=== PATIENT | female | born 1945 | race Caucasian/White ===

== ENCOUNTER → 2022-06-03 14:44 | Outpatient (BNVA) | payer MEDICARE, SELFPAY | PROVIDERS: PCP Family Medicine; Visit Provider Internal Medicine | DX: E16.2 Hypoglycemia, unspecified (principal); R63.5 Abnormal weight gain; Z68.32 Body mass index [BMI] 32.0-32.9, adult | CPT/HCPCS: 99203; 99204 ==

== ENCOUNTER 2023-08-22 11:44 | Inpatient (IN) | payer MEDICARE, SELFPAY ==
[2023-08-22] VITALS (24 sets, daily range): BP systolic 103–197; BP diastolic 49–98; PULSE 55–75; RESP 15–21; TEMP 36.7–36.8; O2SAT 94–99
--- NOTE | 2023-08-22 11:49 | ECG_ITS ---
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 Measurements Intervals [place] Rate: 60 P: 53 OK: 168 QRS: -44 QRSD: 111 T: 47 QT: 419 QTc: 420 Interpretive Statements SINUS RHYTHM LEFT AXIS DEVIATION [QRS AXIS < -30] MODERATE INTRAVENTRICULAR CONDUCTION DELAY [110+ ms QRS DURATION] VOLTAGE CRITERIA FOR LVH [MEETS CRITERIA IN ONE OF: R(aVL), S(V1), R(V5), R(V5/V6)+S(V1)] No previous ECG available for comparison Electronically Signed On 08-22-2023 14:24:41 CDT by Rajesh Pizarro M.D. [id number] f
--- NOTE | 2023-08-22 12:10 | XR_ITS ---
WS: [id number] XR chest 1V portable [id number] REASON FOR EXAM: Chest pain FINDINGS: Mild tortuosity of the thoracic aorta. Mild cardiomegaly. Prominence of the central pulmonary veins. Calcified granulomatous disease in both hemithoraces. No acute pulmonary parenchymal or pleural abnormality is identified. Moderate degenerative spondylosis in the mid and lower thoracic spine. XR/XR chest 1V portable [id number] IMPRESSION: Myocardial megaly and central pulmonary venous hypertension. No acute abnormali ty.
--- NOTE | 2023-08-22 12:11 | ED_ITS ---
HPI - Chest Pain 2 General: Chief Complaint: Chest Pain Stated Complaint: CP Time Seen by Provider: 08/22/23 12:05 History of Present Illness: 78-year-old female with a history of hyp ertension and congestive heart failure (nonischemic) who presents to the emergency room with chest pain. He says yesterday she was doing some things and had a chest tightness that was so bad it made her have to sit down. She has had some increased leg swelling. She is felt more short of breath. The chest tightness has improved today but she still has shortness of breath. She has had a cough for some time now. No fevers. No nausea or vomiting. No abdominal pain. No altered mental status. No focal motor deficits. Review of Systems 2 Narrative: Constitutional symptoms: Negative except as documented in HPI. Skin symptoms: Negative except as documented in HPI. Eye symptoms: Negative except as documented in HPI. ENMT symptoms: Negative except as documented in HPI. Respiratory symptoms: Negative except as documented in HPI. Cardiovascular symptoms: Negative except as documented in HPI. Gastrointestinal symptoms: Negative except as documented in HPI. Genitourinary symptoms: Negative except as documented in HPI. Musculoskeletal symptoms: Negative except as documented in HPI. Neurologic symptoms: Negative except as documented in HPI. Psychiatric symptoms: Negative except as documented in HPI. Endocrine symptoms: Negative except as documented in HPI. PFSH ED 2 PFSH: Medical History Acute hemorrhoid Arthritis Surgical History History of laparoscopic cholecystectomy Physical Exam 2 Narrative: EXAM NARRATIVE: General: Alert, no acute distress. Skin: Warm, dry. Head: Normocephalic, atraumatic. Neck: Supple, trachea midline. Eye: Extraocular movements are intact. Ears, nose, mouth and throat: mucosa moist. Cardiovascular: Regular, Normal peripheral perfusion. Trace tibial edema Respiratory: Lungs are clear to auscultation, respirations are non-labored, breath sounds are equal, Symmetrical chest wall expansion. Gastrointestinal: Soft, Nontender, Non distended, Normal bowel sounds. Musculoskeletal: Normal ROM, no deformity. Neurological: Alert and oriented, No focal neurological deficit observed. Psychiatric: Cooperative, appropriate mood & affect. Course 2 Vital Signs: Vital signs: Vital Signs Temperature 98.1 F 08/22/23 11:45 Pulse Rate 65 08/22/23 15:30 Respiratory Rate 17 08/22/23 15:30 Blood Pressure 180/98 08/22/23 15:30 Pulse Oximetry 97 08/22/23 15:30 Oxygen Delivery Me thod Room Air 08/22/23 11:45 MDM - Chest Pain Medical Decision Making Differential diagnosis for patient with chest pain includes but is not limited to and based on the above HPI, review of systems and physical exam: Pneumonia. unstable angina. angina. Acute coronary syndrome / [place]. Pulmonary embolism. Costochondritis / musculoskeletal. Pleurisy. Pericarditis. Esophageal spasm. Pancreatis. Cholecystitis. Workup: Lab work, chest X-ray and EKG ordered to evaluate, rule in and rule out above pathologies. Chest x-ray: No acute process. No infiltrate. No pneumothorax. Stable cardiomegaly. This was reviewed and interpreted by myself the ER physician. EKG: Time 1149 rate 60 normal sinus rhythm, No ST-T changes, no ectopy, normal MD & QRS intervals, This was reviewed and interpreted by myself the ER physician at 1132. Lab Review: Laboratory results were reviewed and interpreted by myself the emergency room physician. White count is 4.9. Hemoglobin is 13. Platelets are low at 141. BUN and creatinine are 14 and 0.5. First troponin is 40. Repeat troponin is 15 with a delta Trope of 25. I believe she likely had some sort of cardiac event yesterday and her troponin is coming down. I reviewed the patient's medical record. Reexamination: Patient is stable. She is not having any recurrent chest pain. No altered mental status. No increased work of breathing. Consultation: Cardiology consulted at the request of the hospitalist. Dr. Clinton. He will see the patient. Recommends Lovenox, aspirin and metoprolol. Patient has had no further chest pain. Assessment and plan: Non-ST elevation myocardial infarction Unstable angina Hypertension -Therapeutic lovenox and aspirin. P.o. metoprolol -I discussed the patient with the hospitalist on-call who is admitting the patient. - Discussed findings and plan with patient. Answered any questions. - All laboratory values were reviewed and interpreted personally by myself, the ER physician - All imaging was reviewed and interpreted personally by myself, the ER physician. - Evaluation and treatment of this problem were appropriate in the emergency setting -I spent a total of >35 minutes of critical care time managing the patient, independent of any other practitioner. -The time involved in the performance of separately reportable procedures was not counted towards critical care time. Lab Data 08/22/23 12:45 08/22/23 12:45 Radiology Impressions Chest X-Ray 08/22/23 12:10 IMPRESSION: Myocardial megaly and central pulmonary venous hypertension. No acute abnormality. Laboratory Results WBC 4.90 10^3/uL (3.29-11.43) 08/22/23 12:45 RBC 4.17 10^6/uL (3.85-5.65) 08/22/23 12:45 Hgb 13.10 g/dL (11.27-16.99) 08/22/23 12:45 Hct 40.3 % (36-47) 08/22/23 12:45 MCV 96.6 fl (85-98) 08/22/23 12:45 MCH 31.4 pg (27-33) 08/22/23 12:45 MCHC 32.5 g/dL (30-55) 08/22/23 12:45 RDW 13.8 % (12.1-15.1) 08/22/23 12:45 Plt Count 141 10^3/cmm (157-399) L 08/22/23 12:45 MPV 12.6 fL (7.4-10.4) H 08/22/23 12:45 Neut % (Auto) 56.4 % 08/22/23 12:45 Lymph % (Auto) 28.8 % 08/22/23 12:45 [place] % (Auto) 12.2 % 08/22/23 12:45 Eos % (Auto) 1.8 % 08/22/23 12:45 Baso % (Auto) 0.6 % 08/22/23 12:45 Neut # (Auto) 2.76 10^3/uL (1.8-7.7) 08/22/23 12:45 Lymph # (Auto) 1.4 10^3/uL (0.8-4.8) 08/22/23 12:45 [place] # (Auto) 0.6 10^3/uL (0.2-0.9) 08/22/23 12:45 Eos # (Auto) 0.1 10^3/uL (0.0-0.8) 08/22/23 12:45 Baso # (Auto) 0.0 10^3/uL (0.0-0.1) 08/22/23 12:45 Nucleated RBC % (auto) 0 % 08/22/23 12:45 Nucleated RBCs # 0.0 /100WBC 08/22/23 12:45 Sodium 141 mmol/L (136-145) 08/22/23 12:45 Potassium 4.2 mmol/L (3.5-5.1) 08/22/23 12:45 Chloride 104 mmol/L (98-107) 08/22/23 12:45 Carbon Dioxide 28 mmol/L (22-29) 08/22/23 12:45 Anion Gap 13.2 (5-19) 08/22/23 12:45 BUN 14 mg/dL (8-23) 08/22/23 12:45 Creatinine 0.5 mg/dL (0.5-0.9) 08/22/23 12:45 GFR Calculation Not Reportable 08/22/23 12:45 Glucose 101 mg/dL (65-115) 08/22/23 12:45 Calculated Osmolality 293 mOsm/kg (285-295) 08/22/23 12:45 Lactic Acid 0.6 mmol/L (0.5-2.2) 08/22/23 12:45 Calcium 9.0 mg/dL (8.5-10.5) 08/22/23 12:45 Total Bilirubin 0.4 mg/dL (0.15-1.2) 08/22/23 12:45 AST 16 U/L (0-32) 08/22/23 12:45 ALT 12 U/L (0-33) 08/22/23 12:45 Alkaline Phosphatase 106 U/L (35-105) H 08/22/23 12:45 Troponin T Baseline 40 ng/L (0-10) H 08/22/23 14:13 Troponin T 120 Minute 14.49 ng/L (0-10) H 08/22/23 15:41 Delta Troponin T -25.51 ABS# (0-10) L 08/22/23 15:41 C-Reactive Protein 3.0 mg/L (0.0-4.9) 08/22/23 12:45 NT-Pro-B Natriuret Pep 4542 pg/mL (0-450) H 08/22/23 14:13 Total Protein 6.7 g/dL (6.6-8.7) 08/22/23 12:45 Albumin 3.9 g/dL (3.5-5.2) 08/22/23 12:45 Globulin 2.8 g/dL (1.3-4.6) 08/22/23 12:45 Urine Color Light yellow (Yellow) 08/22/23 14:04 Urine Appearance Clear (CLEAR) 08/22/23 14:04 Urine pH 7 (5-7) 08/22/23 14:04 Ur Specific [place] 1.010 (1.005-1.030) 08/22/23 14:04 Urine Protein Neg (Negative) 08/22/23 14:04 Urine Glucose (UA) Norm (Normal) 08/22/23 14:04 Urine Ketones Negative (Negative) 08/22/23 14:04 Urine Blood Neg (Negative) 08/22/23 14:04 Urine Nitrate Negative (Negative) 08/22/23 14:04 Urine Bilirubin Neg (Negative) 08/22/23 14:04 Urine Urobilinogen Norm mg/dL (Negative) 08/22/23 14:04 Ur Leukocyte Esterase Negative (Negative) 08/22/23 14:04 Urine RBC 0-4 /hpf (0-2) H 08/22/23 14:04 Urine WBC 0-4 /hpf (0-5) H 08/22/23 14:04 Ur Squamous Epith Cells 0-4 /hpf (0-5) H 08/22/23 14:04 Amorphous Sediment Not Reportable 08/22/23 14:04 Urine Bacteria Trace /hpf (NONE) 08/22/23 14:04 Adenovirus (PCR) Not detected (NOT DETECT) 08/22/23 12:46 C. pneumoniae DNA (PCR) Not detected (NOT DETECT) 08/22/23 12:46 Coronavirus 229E (PCR) Not detected (NOT DETECT) 08/22/23 12:46 Human Metapneumovir PCR Not detected (NOT DETECT) 08/22/23 12:46 Influenza A (H1) PCR Not detected (NOT DETECT) 08/22/23 12:46 Influ A (H1/09) PCR Not detected (NOT DETECT) 08/22/23 12:46 Influenza A (H3) PCR Not detected (NOT DETECT) 08/22/23 12:46 Influenza Type A (PCR) Not detected (NOT DETECT) 08/22/23 12:46 Influenza Type B (PCR) Not detected (NOT DETECT) 08/22/23 12:46 M. pneumoniae (PCR) Not detected (NOT DETECT) 08/22/23 12:46 Parainfluenza 1 (PCR) Not detected (NOT DETECT) 08/22/23 12:46 Parainfluenza 2 (PCR) Not detected (NOT DETECT) 08/22/23 12:46 Parainfluenza 3 (PCR) Not detected (NOT DETECT) 08/22/23 12:46 Parainfluenza 4 (PCR) Not detected (NOT DETECT) 08/22/23 12:46 RSV Type A (PCR) Not detected (NOT DETECT) 08/22/23 12:46 RSV Type B (PCR) Not detected (NOT DETECT) 08/22/23 12:46 Entero/Rhino (PCR) Not detected (NOT DETECT) 08/22/23 12:46 SARS-CoV-2 (PCR) Not detected (NOT DETECT) 08/22/23 12:46 All radiology interpretation(s) finalized by discharge Discharge Plan Discharge Patient Disposition: Admitted As Inpatient Clinical Impression: Non-ST elevated myocardial infarction, Unstable angina, Hypertension Condition: Stable Coding Level of Care Code ED Medical Affairs Manager for Alexey Yeung
[2023-08-22 13:08] LABS: Basophils % 0.6 %; Eosinophils # 0.1 10^3/uL (0.0-0.8); Eosinophils % 1.8 %; Hematocrit 40.3 % (36-47); Lymphocytes # 1.4 10^3/uL (0.8-4.8); Lymphocytes % 28.8 %; Mean Corpuscular HGB Conc 32.5 g/dL (30-55); Mean Corpuscular Hemoglobin 31.4 pg (27-33); Mean Corpuscular Volume 96.6 fl (85-98); Mean Platelet Volume 12.6 fL (7.4-10.4); Monocytes # 0.6 10^3/uL (0.2-0.9); Monocytes % 12.2 %; Neutrophils # 2.76 10^3/uL (1.8-7.7); Neutrophils % 56.4 %; Nucleated Red Blood Cells % 0 %; Platelet Count 141 10^3/cmm (157-399); Red Blood Count 4.17 10^6/uL (3.85-5.65); Red Cell Distribution Width 13.8 % (12.1-15.1)
[2023-08-22 13:33] LABS: Alanine Aminotransferase 12 U/L (0-33); Albumin Level 3.9 g/dL (3.5-5.2); Alkaline Phosphatase 106 U/L (35-105); Anion Gap 13.2 (5-19); Aspartate Amino Transferase 16 U/L (0-32); Blood Urea Nitrogen 14 mg/dL (8-23); Carbon Dioxide 28 mmol/L (22-29); Chloride 104 mmol/L (98-107); Globulin 2.8 g/dL (1.3-4.6); Glucose 101 mg/dL (65-115); Osmolality Calculated 293 mOsm/kg (285-295); Potassium 4.2 mmol/L (3.5-5.1); Sodium 141 mmol/L (136-145); Total Bilirubin 0.4 mg/dL (0.15-1.2); Total Protein 6.7 g/dL (6.6-8.7)
[2023-08-22 13:35] LABS: Lactic Sepsis W/Reflex 0.6 mmol/L (0.5-2.2)
[2023-08-22 14:57] LABS: Adenovirus Not Detected (NOT DETECT); Chlamydia Pneumoniae Not Detected (NOT DETECT); Coronavirus 229E,HKU1,NL63,OC4 Not Detected (NOT DETECT); Human Metapneumovirus Not Detected (NOT DETECT); Human Rhinovirus/Enterovirus Not Detected (NOT DETECT); Influenza A Not Detected (NOT DETECT); Influenza A H1 Not Detected (NOT DETECT); Influenza A H1-2009 Not Detected (NOT DETECT); Influenza A H3 Not Detected (NOT DETECT); Influenza B Not Detected (NOT DETECT); Mycoplasma Pneumoniae Not Detected (NOT DETECT); Parainfluenza Virus Type 1 Not Detected (NOT DETECT); Parainfluenza Virus Type 2 Not Detected (NOT DETECT); Parainfluenza Virus Type 3 Not Detected (NOT DETECT); Parainfluenza Virus Type 4 Not Detected (NOT DETECT); Respiratory Syncytial Virus A Not Detected (NOT DETECT); Respiratory Syncytial Virus B Not Detected (NOT DETECT); SARS-COV-2 Not Detected (NOT DETECT)
[2023-08-22 14:59] LABS: Troponin(5th) Baseline 40 ng/L (0-10)
--- NOTE | 2023-08-22 15:02 | ECG_ITS ---
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 Measurements Intervals [place] Rate: 60 P: 59 TX: 173 QRS: -38 QRSD: 118 T: 44 QT: 436 QTc: 437 Interpretive Statements SINUS RHYTHM LEFT AXIS DEVIATION [QRS AXIS < -30] VOLTAGE CRITERIA FOR LVH [MEETS CRITERIA IN ONE OF: R(aVL), S(V1), R(V5), R(V5/V6)+S(V1)] POSSIBLE LATERAL MYOCARDIAL INFARCTION , OF INDETERMINATE AGE [30 ms Q WAVE IN I/aVL/V5/V6] Compared to ECG 08/22/2023 11:49:56 Myocardial infarct finding now present Intraventricular conduction delay no longer present Electronically Signed On 08-24-2023 12:49:46 CDT by Rajesh Pizarro M.D. [id number]
[2023-08-22 15:06] LABS: NT Pro B Type Natriuretic Pept 4542 pg/mL (0-450)
[2023-08-22 16:05] LABS: Urine Color Light yellow (Yellow)
[2023-08-22 16:06] LABS: Add Urine Culture? No; Bacteria Urine TRACE /hpf; Bilirubin Urine Neg (Negative); Blood Urine Neg (Negative); Glucose Urine UA Norm (Normal); Ketones Urine Negative (Negative); Leukocyte Esterase Urine Negative (Negative); Nitrate Urine Negative (Negative); Protein Urine Neg (Negative); RBC Urine 0-4 /hpf (0-2); Squamous Epithelial Cell Urine 0-4 /hpf (0-5); Urine Appearance Clear (CLEAR); Urobilinogen Urine Norm (Negative); WBC Urine 0-4 /hpf (0-5); pH Urine 7 (5-7)
[2023-08-22 16:45] LABS: Troponin 5 2HR 14.49 ng/L (0-10)
[2023-08-22 16:46] LABS: Troponin 5 2HR Delta -25.51 ABS# (0-10)
--- NOTE | 2023-08-22 17:49 | P.HP_ITS ---
Providers/Chief Complaint 2 Admitting Physician: Edson Bridges MD Primary Care Provider: Leonid Pagan Chief Complaint: CP History of Present Illness Valerie Grant is a 78 year old female with history of heart failure, presented today with chief complaint of chest pain. 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 Patient is also endorsing lower extremity swelling which is slightly better after getting Lasix. Patient is stating that she does have history of congestive heart failure never had coronary disease or any stents placed. Never smoked in her life. Review of Systems 2 Const: Denies: fever(s) Eyes: Denies: change in vision ENMT: Denies: throat pain Card: Reports: chest pain and swelling of feet/ankles Resp: Reports: dyspnea Medications/Allergies Home Medications Medication Instructions Recorded Confirmed Last Taken Type famotidine 20 mg tablet (Pepcid) 20 mg PO DAILY 06/03/22 08/22/23 08/22/23 History furosemide 40 mg tablet 40 mg PO DAILY 06/03/22 08/22/23 08/21/23 History losartan 25 mg tablet 25 mg PO DAILY 06/03/22 08/22/23 08/22/23 History magnesium citrate 100 mg capsule 100 mg PO DAILY PRN unknown 06/03/22 08/22/23 Unknown History metoprolol tartrate 25 mg tablet 12.5 mg PO BID 06/03/22 08/22/23 08/22/23 History potassium chloride 20 mEq 20 meq PO DAILY 06/03/22 08/22/23 08/21/23 History tablet,extended release(part/cryst) sertraline 50 mg tablet 25 mg PO DAILY 06/03/22 08/22/23 08/21/23 History Allergies Allergy/AdvReac Type Severity Reaction Status Date / Time sulfamethoxazole Allergy Severe Swelling Verified 08/22/23 12:08 [From Sulfamethoxazole-Trimethoprim] trimethoprim Allergy Severe Swelling Verified 08/22/23 12:08 [From Sulfamethoxazole-Trimethoprim] epinephrine Allergy Intermediate palpations Verified 08/22/23 12:08 lidocaine Allergy Intermediate palpations Verified 08/22/23 12:08 meloxicam Allergy Intermediate palpatation Verified 08/22/23 12:08 s penicillin G Allergy Intermediate itching Verified 08/22/23 12:08 tetracycline Allergy Intermediate itching Verified 08/22/23 12:08 cephalexin Allergy Severe Stomach Uncoded 06/03/22 15:45 pain codine Allergy Intermediate itching Uncoded 06/03/22 15:25 erythromycin Allergy Intermediate itching Uncoded 06/03/22 15:25 pseudoephedrine hcl Allergy Intermediate palpitation Uncoded 06/03/22 15:45 s PFSH Acute 2 PFSH: Medical History (Updated 08/22/23 @ 18:52 by Edson Bridges MD) CHF (congestive heart failure) Stroke Appendicitis Breast cancer Melanoma COPD (chronic obstructive pulmonary disease) Acute hemorrhoid Arthritis Surgical History History of laparoscopic cholecystectomy Vitals/I&O/Wt Last Vital Signs Temp 98.1 F 08/22/23 11:45 Pulse 65 08/22/23 15:30 Resp 17 08/22/23 15:30 BP 180/98 08/22/23 15:30 Pulse Ox 97 08/22/23 15:30 O2 Del Method Room Air 08/22/23 11:45 Physical Exam 2 Narrative: Pleasant cooperative No active chest pain Hypertensive GCS 15 Nonfocal neuroexam lower extremity nonpitting edema Abdomen soft S1, S2 Currently on room air Appears stated age Data 08/22/23 12:45 08/22/23 12:45 Micro: Microbiology 08/22/23 12:58 Blood Culture - Preliminary Blood SPECIMEN COLLECTED 08/22/23 12:45 Blood Culture - Preliminary Blood SPECIMEN COLLECTED A&P Assessment and plan (1) Hypertension: (2) Unstable angina: Plan Unstable angina Typical chest pain Will keep n.p.o. after midnight She will benefit from an angiogram Cardiology consulted I will load her with Plavix She has received aspirin loading dose She has also received therapeutic Lovenox Troponin 29 EKG without infarctive changes however showing multiple PVCs She is chest pain free at the time of my evaluation Hypertensive urgency: Will give her IV hydralazine, I will continue her metoprolol and losartan History of congestive heart failure, EF is unknown She takes Lasix along potassium supplementation on daily basis Will request echo N.p.o. after midnight She can eat before midnight Full code Patient is stating that she is prediabetic Check D-dimer, TSH Attestations 2 Medical Necessity Statement*: More than 2 midnights anticipated Diagnoses Hypertension I10 Unstable angina I20.0
[2023-08-22] MEDS: metoprolol tartrate 25 mg Tablet 12.5 MG PO (17:50)
[2023-08-22] MEDS: enoxaparin 100 mg/mL Syringe 90 MG SUBCUT (17:52)
[2023-08-22] MEDS: aspirin 81 mg Chew Tablet 324 MG PO (17:52)
--- NOTE | 2023-08-22 18:27 | P.CONIM_ITS ---
Providers/Reason For Consult 2 Consulting Physician/Specialty*: Geovanna Pizarro MD/ Cardiology Reason for Consult*: Unstable angina Requesting Physician: Dr Bridges Attending Physician: Edson Bridges MD Primary Care Provider: Leonid Pagan History of Present Illness History of Present Illness Valerie Grant is a 78 year old female with past medical history of hypertension who presented to hospital with chest pain, fatigue and shortness of breath for the last few weeks. She has been worsening symptoms and today felt significant symptoms that brought her to the hospital. Says that can not do physical activity without getting symptoms. EKG shows sinus rhythm with interventricular conduction delay. Initial troponin was elevated at 40 and has trended down. Blood pressure initially was elevated to over 180 mmHg however has trended down. Review of Systems 2 Const: Denies: fever(s) Eyes: Denies: change in vision ENMT: Denies: throat pain Card: Reports: chest pain and swelling of feet/ankles Resp: Reports: dyspnea Medications/Allergies Home Medications Medication Instructions Recorded Confirmed Last Taken Type famotidine 20 mg tablet (Pepcid) 20 mg PO DAILY 06/03/22 08/22/23 08/22/23 History furosemide 40 mg tablet 40 mg PO DAILY 06/03/22 08/22/23 08/21/23 History magnesium citrate 100 mg capsule 100 mg PO DAILY PRN unknown 06/03/22 08/22/23 Unknown History potassium chloride 20 mEq 20 meq PO DAILY 06/03/22 08/22/23 08/21/23 History tablet,extended release(part/cryst) sertraline 50 mg tablet 25 mg PO DAILY 06/03/22 08/22/23 08/21/23 History amlodipine 10 mg tablet 10 mg PO DAILY #90 tabs 08/23/23 Unknown Rx aspirin 81 mg tablet,delayed 81 mg PO DAILY #90 tabs 08/23/23 Unknown Rx release losartan 25 mg tablet 50 mg (2 x 25 mg) PO DAILY #60 tabs 08/23/23 Unknown Rx Allergies Allergy/AdvReac Type Severity Reaction Status Date / Time sulfamethoxazole Allergy Severe Swelling Verified 08/22/23 12:08 [From Sulfamethoxazole-Trimethoprim] trimethoprim Allergy Severe Swelling Verified 08/22/23 12:08 [From Sulfamethoxazole-Trimethoprim] epinephrine Allergy Intermediate palpations Verified 08/22/23 12:08 lidocaine Allergy Intermediate palpations Verified 08/22/23 12:08 meloxicam Allergy Intermediate palpatation Verified 08/22/23 12:08 s penicillin G Allergy Intermediate itching Verified 08/22/23 12:08 tetracycline Allergy Intermediate itching Verified 08/22/23 12:08 cephalexin Allergy Severe Stomach Uncoded 06/03/22 15:45 pain codine Allergy Intermediate itching Uncoded 06/03/22 15:25 erythromycin Allergy Intermediate itching Uncoded 06/03/22 15:25 pseudoephedrine hcl Allergy Intermediate palpitation Uncoded 06/03/22 15:45 s Current Medications Generic Name Dose Route Start Last Admin Trade Name Freq PRN Reason Stop Dose Admin Metoprolol Tartrate 12.5 mg 08/22/23 18:03 08/22/23 18:23 Metoprolol Tartrate 25 Mg Tablet PO Not Given BID CINTHYA PFSH Acute 2 PFSH: Medical History (Updated 08/30/23 @ 13:03 by Rajesh Pizarro M.D) Hypertension Unstable angina Eliseo-tachy syndrome Bradycardia Non-ST elevated myocardial infarction CHF (congestive heart failure) Stroke Appendicitis Breast cancer Melanoma COPD (chronic obstructive pulmonary disease) Acute hemorrhoid Arthritis Surgical History History of laparoscopic cholecystectomy Vitals/I&O/Wt Last Vital Signs Temp 98.1 F 08/22/23 11:45 Pulse 63 08/22/23 18:08 Resp 16 08/22/23 18:08 BP 180/98 08/22/23 15:30 Pulse Ox 98 08/22/23 18:08 O2 Del Method Room Air 08/22/23 18:08 Physical Exam 2 Narrative: GENERAL: Patient is alert, awake and oriented x3. [] NECK: No jugular vein distension. [] HEENT: No cyanosis. No icterus. No pallor. [] HEART: Regular S1 and S2. No murmur, rub or gallop. [] LUNGS: Clear to auscultate bilaterally. [] CENTRAL NERVOUS SYSTEM: Grossly nonfocal. [] EXTREMITIES: Lower extremities with 1+ edema bilaterally. Data 08/24/23 03:00 08/24/23 03:00 Micro: Microbiology 08/22/23 12:58 Blood Culture - Preliminary Blood SPECIMEN COLLECTED 08/22/23 12:45 Blood Culture - Preliminary Blood SPECIMEN COLLECTED A&P Assessment and plan (1) Unstable angina: (2) Hypertension: (3) CHF (congestive heart failure): Plan Patient has been having symptoms concerning for unstable angina. Initial troponin was elevated however has not trended up. Given her risk factors and typical worsening symptoms, we will proceed with coronary angiogram. N.p.o. past midnight. Blood pressure was elevated at presentation. Uptitrate antihypertensive medications as needed. Nitro gtt as needed Continue aspirin and anticoagulation Order echocardiogram Thank you for involving us with care of this patient. We will continue to follow. Please call with questions. Consult Attestations 2 Medical Necessity Statement: Care expected to cross 2 midnights. Coding Level of Care Code Acute Code for [facility] Diagnoses Unstable angina I20.0 Hypertension I10 CHF (congestive heart failure) I50.9
[2023-08-22] MEDS: FUROsemide 10 mg/mL SDV 4mL 40 MG IVP (18:37)
[2023-08-22] MEDS: clopidogrel 300 mg Tablet PO (19:26)
[2023-08-22] MEDS: hyDRALAzine 20 mg/mL INJ 1 mL 10 MG IVP (19:26)
--- NOTE | 2023-08-22 19:39 | PC.NURSE ---
Patient refusing to wear SCDs presently. Patient is currently on Lovenox. PLan for LHC in am.
[2023-08-22 19:42] LABS: D Dimer 0.68 ug/mLFEU (0-0.59)
[2023-08-22 19:48] LABS: Estmated Average Glucose 111; Hemoglobin A1C 5.5 % (4.0-6.0)
[2023-08-22 20:05] LABS: Thyroid Stimulating Hormone 2.25 uIU/mL (0.27-4.20); Vitamin B12 382 pg/mL (232-1245)
--- NOTE | 2023-08-22 20:15 | ECG_ITS ---
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 Measurements Intervals [place] Rate: 68 P: 62 IN: 155 QRS: -49 QRSD: 119 T: 20 QT: 431 QTc: 461 Interpretive Statements SINUS RHYTHM WITH OCCASIONAL VENTRICULAR PREMATURE COMPLEXES LEFT ANTERIOR FASCICULAR BLOCK [QRS AXIS <= -45, QR IN I, RS IN II] NONSPECIFIC ST & T-WAVE ABNORMALITY Compared to ECG 08/22/2023 15:02:08 Ventricular premature complex(es) now present Left anterior fascicular block now present T-wave abnormality now present Left-axis deviation no longer present Left ventricular hypertrophy no longer present Myocardial infarct finding no longer present Electronically Signed On 08-24-2023 12:48:23 CDT by Rajesh Pizarro M.D. [id number]
[2023-08-23] VITALS (22 sets, daily range): BP systolic 99–147; BP diastolic 47–68; PULSE 51–79; RESP 14–24; TEMP 36.7; O2SAT 92–98
[2023-08-23] MEDS: acetaminophen 500 mg Tablet PO ×2 (02:43→20:42)
[2023-08-23 05:48] LABS: Basophils % 0.7 %; Eosinophils # 0.1 10^3/uL (0.0-0.8); Eosinophils % 2.4 %; Hematocrit 36.4 % (36-47); Lymphocytes # 1.9 10^3/uL (0.8-4.8); Lymphocytes % 36.3 %; Mean Corpuscular HGB Conc 33.2 g/dL (30-55); Mean Corpuscular Volume 96.3 fl (85-98); Mean Platelet Volume 12.9 fL (7.4-10.4); Monocytes # 0.7 10^3/uL (0.2-0.9); Monocytes % 12.5 %; Neutrophils # 2.55 10^3/uL (1.8-7.7); Neutrophils % 47.9 %; Nucleated Red Blood Cells % 0 %; Platelet Count 136 10^3/cmm (157-399); Red Blood Count 3.78 10^6/uL (3.85-5.65); White Blood Count 5.34 10^3/uL (3.29-11.43)
--- NOTE | 2023-08-23 06:00 | USCV_ITS ---
Valerie Grant Age: 78 Gender: F : 1945 Exam Date: 08/23/2023 06:54 Ordering Phys: Edson Bridges MD Technologist: Jl Levi [place]am [place] [facility] [place]: chf BP: 127 / 63 HR: 68 Rhythm: Sinus Technical Quality: Adequate MEASUREMENTS (Male / Female) Normal Values 2D ECHO LV Diastolic Diameter PLAX 5.5 cm 4.2 - 5.9 / 3.9 - 5.3 cm IVS Diastolic Thickness 0.8 cm 0.6 - 1.0 / 0.6 - 0.9 cm IVS Systolic Thickness 1.1 cm LVPW Diastolic Thickness 0.9 cm 0.6 - 1.0 / 0.6 - 0.9 cm LVPW Systolic Thickness 1.6 cm LVOT Diameter 2.0 cm LV Ejection Fraction 2D Teich 59.3 % LV Ejection Fraction MOD 2C 73.9 % LV Ejection Fraction 2C AL 75.7 % LA Diameter 3.7 cm RA Systolic Volume 4C AL 36.1 ml RA Systolic Volume 4C MOD 36.4 ml LA Sys Volume AL 62.9 cm cubed LA Sys Volume Index AL 33.1 cm cubed/m squared Aorta at Sinotubular Diameter 2.4 cm IVC Diameter 1.7 cm M-MODE LA Ao Ratio MM 1.5 AV Cusp Separation MM 2.0 cm DOPPLER AV Peak Velocity 138.7 cm/s LVOT Peak Velocity 118.0 cm/s AV Area Cont Eq vti 3.2 cm squared AV Area Cont Eq pk 2.7 cm squared MV Peak Velocity 148.0 cm/s MV Area PHT 5.6 cm squared Mitral E to A Ratio 1.1 TV Peak Velocity 334.0 cm/s TR Peak Velocity 348.0 cm/s TR Peak Gradient 48.4 mmHg TR Mean Velocity 278.0 cm/s TR Mean Gradient 32.4 mmHg TR Velocity Time Integral 109.4 cm PV Peak Velocity 93.3 cm/s RV Ejection Time 0.3 s FINDINGS Left Ventricle Left ventricle is normal in size. LV systolic function is normal with EF of 50 to 55%. No regional wall motion abnormalities are seen. Right Ventricle Normal in size and function Right Atrium Normal in size Left Atrium Dilated Mitral Valve Mild mitral annular calcification. Mild mitral regurgitation. Aortic Valve Structurally normal aortic valve. No significant stenosis or regurgitation. Tricuspid Valve Mild tricuspid regurgitation. RVSP is 45 to 50 mmHg. This is consistent with moderate pulmonary hypertension. Pulmonic Valve Mild pulmonic regurgitation. Pericardium Normal Aorta Normal in size IVC Appears to be normal CONCLUSIONS LV systolic function is normal with EF of 50-55% Left atrial dilation Mild mitral regurgitation Mild tricuspid regurgitation Moderate pulmonary hypertension Mild pulmonic regurgitation No comparison studies are available. Rajesh Pizarro MD (Electronically Signed) Final Date: 23 Aug 2023 12:34 S
[2023-08-23 06:03] LABS: Anion Gap 12.6 (5-19); Blood Urea Nitrogen 12 mg/dL (8-23); Calcium 8.4 mg/dL (8.5-10.5); Carbon Dioxide 26 mmol/L (22-29); Chloride 101 mmol/L (98-107); Glucose 97 mg/dL (65-115); Magnesium 1.9 mg/dL (1.7-2.3); Osmolality Calculated 282 mOsm/kg (285-295); Phosphorus 3.1 mg/dL (2.5-4.5); Potassium 3.6 mmol/L (3.5-5.1); Sodium 136 mmol/L (136-145)
[2023-08-23] MEDS: sodium chloride 0.9% 1,000 ML 50 ML IV (06:28)
[2023-08-23] MEDS: diphenhydrAMINE 50 mg Capsule PO (06:28)
--- NOTE | 2023-08-23 06:44 | XACV_ITS ---
Exam Room: 2 Ht: 165 cm Wt: 77 kg BSA: 1.90 m2 Gender: Female : 1945 Any Known Allergies: Other Exam Priority: Routine Procedure(s): Procedure Description: Diagnostic procedure Procedure Description: Coronary Angiography Diagnostic Cath Status: Urgent Diagnostic Findings * No significant disease noted in the Left Main, Left Anterior Descending, Right, or Circumflex coronary arteries. * Coronary angiography shows right dominance. Conclusions 1. No significant disease noted in the Left Main, Left Anterior Descending, Right, or Circumflex coronary arteries. Recommendations * Aggressive risk factor modification. * Outpatient cardiology follow up in 4 weeks. Interventional RX Recommendation: medical therapy and/or counseling Diagnostic RX Recommendation: medical therapy and/or counseling Anticoagulation: Heparin Pressures Phase:Rest AO : 148 / 86 ( 115 ) @ 9:06:00 AM Clinical Evaluation EBL: 5mL-10mL Procedural Details Procedure Consent Obtained. Pre-Procedure Time Out. Identified patient by full name and date of as verbalized by the patient/guarantor. Does the consent match the physician's order: Yes. Accurate & Complete Informed Consent: Yes. Inpatient/Outpatient History & Physical on Chart: Yes. If H&P is completed, is and addenduem needed: No. Visualize and Verify Site with Patient/Guarantor: N/A. Relevant Radiology Images available: Yes. The risks, benefits, and alternatives of sedation and/or procedure were discussed by physician. The patient agrees to continue. Procedure started. [facility] Clinical Fraility Score: 3: Managing Well. Width Stripper Indications: New Onset Angina. Chest Pain Symptom Assessment: Typical Angina Symptoms. Cardiovascular Instability: No. Correct patient, site and procedure confirmed by cath team. PERRLA. Strong, equal hand cooker sulfate bilaterally. Lungs clear x 5 lobes. A 20 gauge IV was started in the left anticubital using aseptic technique. IV Fluids: 0.9% NaCl at KVO. 0 mL infused prior to research laboratory technician. Pre Procedural Pulses: bilateral dorsalis pedis was Doppled. Pre Procedural Pulses: bilateral posterior tibial was Doppled. Pre Procedural Pulses: right radial was 2+. Oxygen started at 2liters/min via nasal canula. right groin was prepped with chloroprep then draped in the usual sterile fashion. right radial was prepped with chloroprep then draped in the usual sterile fashion. Physician notified. Baseline sample Acquired. HR: 75 BPM. Patient's family in the research laboratory technician waiting room. Dr. Pizarro will update at the completion of the procedure. Equipment: 6F - Radial. Cardiac Cath Pack. ACIST Manifold Kit Model BT 2000. Heparinized Saline (2 units/mL), 1000 mL bag. Physician arrived. Physician scrubbed in. Immediate Pre-Procedure Time Out. Correct Patient: Yes; Correct Procedure: Yes; Correct Site: Yes; Correct Patient Position: Yes; Correct Supplies: Yes; Dried Flammable Prep: Yes; Blood Products Available: N/A. Bupivacaine 1% infiltrated to the right radial. Arterial access obtained. A 5 solomon islander TIG catheter in over the exchange J wire. Exchange J wire would not advance through the catheter. Wire and catheter out, hand injection performed through the sheath. A 5 solomon islander TIG catheter in over the 0.035 x 260 stiff angled glidewire. Unable to advance the catheter, aborting radial access. Bupvacaine 1% infiltrated to the right groin. Arterial access obtained with micropuncture set. Catheter inserted over the standard wire. Multiple views taken of left coronary artery. Catheter removed over the standard wire. A 5 solomon islander JR4 catheter in over the standard wire. Multiple views taken of right coronary artery. A 5 solomon islander Angled Pig catheter in over the standard wire. Catheter removed over the standard wire. A Right femoral angiogram was performed to determine safe placement of closure device. A TR Band was successful obtaining hemostatsis at the Right Radial artery insertion site. A Angio-Seal VIP ([employer]hijeet) was successful obtaining hemostatsis at the Right Femoral artery insertion site. PERRLA. Strong, equal hand cooker sulfate bilaterally. No VTE prophylaxis required. Medication's Wasted: Other = Versed 1 mg. Medication's Wasted: Other = Fentanyl 25 mcg mL. Medication's Wasted: Nitro = 49.8 mg. Medication's Wasted: Heparin = 1000 mg. Total IV fluids: 30 mL. Post-op diagnosis: non obstructive CAD. Complications: none. Estimated blood loss: 5mL-10mL. Responsiveness - Normal response to verbal stimuli; alert and oriented, PERRLA. Airway - Unaffected, no intervention required; spontaneous ventilation. Circulation: W/N/L, pulses unchanged. Nausea/Vomiting: No. Procedure completed. Patient transferred by bed to ICU. Vital chart was stopped. Access Site Site: Right Radial artery Sheath Size: 6 Fr Hemostasis Method: TR Band Hemostasis Success: Successful Site: Right Femoral artery Sheath Size: 6 Fr Hemostasis Method: Angio-Seal VIP ([employer]. Abhijeet) Hemostasis Success: Successful Procedure Medications Start: 7:39 AM Stop: 7:39 AM Medication: Aspirin Amount: 81 mg Route: P.O. Start: 7:39 AM Stop: 7:39 AM Medication: Plavix Amount: 75 mg Route: P.O. Start: 7:40 AM Stop: 7:40 AM Medication: Versed Amount: 1 mg Route: I.V. Start: 7:42 AM Stop: 7:42 AM Medication: Fentanyl Amount: 25 mcg Route: I.V. Start: 7:50 AM Stop: 7:50 AM Medication: Nitrogylcerin Amount: 200 mcg Route: I.A. Start: 8:02 AM Stop: 8:02 AM Medication: Fentanyl Amount: 25 mcg Route: I.V. Start: 8:18 AM Stop: 8:18 AM Medication: Fentanyl Amount: 25 mcg Route: I.V. I, the attending physician, have reviewed and verified all procedure medications. Yes, all medications given per verbal order History/Risk Factors Hypertension: Yes Dyslipidemia: No Peripheral Arterial Disease (PAD): No Myocardial Infarction (NH): No Obesity: Yes Renal Disease: No Prior Interventions PCI: No CABG: No Valve Surgery: No Report Signatures Finalized by Rajesh Pizarro MD on 08/30/2023 12:57 PM
[2023-08-23] MEDS: metoprolol tartrate 25 mg Tablet 12.5 MG PO (06:45)
--- NOTE | 2023-08-23 07:42 | W.PM.OPSUD ---
Surgery/Procedure H&P Update DATE OF PROCEDURE: August 23, 2023 DATE H&P PERFORMED: 08/22/23 H&P UPDATE INFORMATION: I have reviewed H&P completed within last 30 days, I have examined patient prior to procedure and No changes to prior documentation PREOP DIAGNOSIS: Unstable angina PRIMARY INDICATION FOR PROCEDURE: Unstable angina PLANNED PROCEDURE: Operation Date: 08/23/23 07:30 Proposed Procedures p Cardiac Catheterization(Left) - Rajesh Pizarro M.D Possible percutaneous coronary intervention PATIENT REASSESSED PRIOR TO SEDATION, WITH NO CHANGE NOTED: Yes PHYSICAL EXAM: alert, oriented x 3, clear to auscultation bilaterally and regular rate & rhythm AIRWAY EVAL/ANESTHESIA PLAN: normal airway, ASA III, Local Anesthesia, Risks, benefits & alternatives of sedation and/or procedure discussed and Patient agrees to continue as planned ADDITIONAL INFORMATION: Moderate sedation
--- NOTE | 2023-08-23 08:35 | P.PN_ITS ---
Subjective 2 Subjective: Plan for coronary angiogram today She is n.p.o. Vitals/I&O/Wt Last Vital Signs Temp 98.0 F 08/22/23 20:00 Pulse 55 L 08/23/23 05:55 Resp 16 08/23/23 05:00 BP 127/63 08/23/23 05:00 Pulse Ox 97 08/23/23 05:00 O2 Del Method Room Air 08/22/23 20:00 08/22/23 08/23/23 08/23/23 22:59 06:59 14:59 Output Total 600 / 600 1100 / 1700 Balance -600 / -600 -1100 / -1700 Weight last 48 hrs Weight 77.474 kg Physical Exam 2 Narrative: no significant signs of fluid overload GCS 15 Nonfocal neuroexam Currently on room air Pleasant No active chest pain S1, S2 Lower extremity nonpitting edema Data 08/23/23 04:30 08/23/23 04:30 Micro: Microbiology 08/22/23 12:58 Blood Culture - Preliminary Blood SPECIMEN COLLECTED 08/22/23 12:45 Blood Culture - Preliminary Blood SPECIMEN COLLECTED A&P Assessment and plan (1) Hypertension: (2) Non-ST elevated myocardial infarction: (3) Unstable angina: (4) Bradycardia: Plan Bradycardia Unstable angina Patient went for coronary angiogram today Hemodynamically stable Currently on room air Unremarkable coronary vessels Patient is bradycardic Will need Holter/event monitor at the time of discharge by tomorrow Discontinue metoprolol Increase the dose of losartan for hypertension Hypertensive urgency Blood pressure is better today Full code Cardiac Will remove NG tube after 6 hours Attestations 2 Medical Necessity Statement*: Discharge tomorrow Diagnoses Hypertension I10 Non-ST elevated myocardial infarction I21.4 Unstable angina I20.0 Bradycardia R00.1
--- NOTE | 2023-08-23 09:34 | P.PN_ITS ---
Subjective 2 Subjective: Patient had coronary angiogram performed today. No significant CAD. ECHO shows normal LV systolic function Vitals/I&O/Wt Last Vital Signs Temp 98.0 F 08/22/23 20:00 Pulse 55 L 08/23/23 05:55 Resp 16 08/23/23 05:00 BP 127/63 08/23/23 05:00 Pulse Ox 97 08/23/23 05:00 O2 Del Method Room Air 08/22/23 20:00 08/22/23 08/23/23 08/23/23 22:59 06:59 14:59 Output Total 600 / 600 1100 / 1700 Balance -600 / -600 -1100 / -1700 Weight last 48 hrs Weight 170 lb 12.8 oz Physical Exam 2 Narrative: GENERAL: Patient is alert, awake and oriented x3. [] NECK: No jugular vein distension. [] HEENT: No cyanosis. No icterus. No pallor. [] HEART: Regular S1 and S2. No murmur, rub or gallop. [] LUNGS: Clear to auscultate bilaterally. [] CENTRAL NERVOUS SYSTEM: Grossly nonfocal. [] EXTREMITIES: Lower extremities with 1+ edema bilaterally. Data 08/23/23 04:30 08/23/23 04:30 Micro: Microbiology 08/22/23 12:58 Blood Culture - Preliminary Blood SPECIMEN COLLECTED 08/22/23 12:45 Blood Culture - Preliminary Blood SPECIMEN COLLECTED A&P Assessment and plan (1) Unstable angina: (2) Hypertension: (3) Bradycardia: Plan Patient's coronary angiogram does not reveal significant CAD. Likely symptoms are secondary to hypertensive urgency. Troponin elevation also secondary to that. Aggressive medical management. Will continue diuresis for 1 more day. Thank you for involving us with care of this patient. We will continue to follow. Please call with questions. Attestations 2 Medical Necessity Statement*: Care expected to cross 2 midnights. Coding Level of Care Code Acute Code for [facility] Diagnoses Unstable angina I20.0 Hypertension I10 Bradycardia R00.1
[2023-08-23] MEDS: amlodipine 10 mg Tablet PO (10:13)
[2023-08-23] MEDS: losartan 50 mg Tablet 25 MG PO (10:13)
[2023-08-23] MEDS: sennosides-docusate Tablet 1 TAB PO (10:14)
--- NOTE | 2023-08-23 17:26 | PC.NURSE ---
Report called to CSU RN, Nissa. Patient is currently eating her evening meal and will transfer after that. Patient to transfer to Room 104.
[2023-08-23] MEDS: FUROsemide 10 mg/mL SDV 4mL 40 MG IVP (17:46)
[2023-08-24] VITALS: BP 113/54; PULSE 94; RESP 15; TEMP 33.7; O2SAT 96
[2023-08-24 04:00] VITALS: BP 140/67; PULSE 65; RESP 14; TEMP 33.5; O2SAT 96
[2023-08-24 04:37] LABS: Basophils % 0.4 %; Eosinophils # 0.2 10^3/uL (0.0-0.8); Eosinophils % 2.7 %; Hematocrit 38.3 % (36-47); Lymphocytes # 1.6 10^3/uL (0.8-4.8); Lymphocytes % 29.1 %; Mean Corpuscular HGB Conc 32.9 g/dL (30-55); Mean Corpuscular Hemoglobin 32.1 pg (27-33); Mean Corpuscular Volume 97.5 fl (85-98); Mean Platelet Volume 12.9 fL (7.4-10.4); Monocytes # 0.7 10^3/uL (0.2-0.9); Monocytes % 13.2 %; Neutrophils # 3.02 10^3/uL (1.8-7.7); Neutrophils % 54.6 %; Nucleated Red Blood Cells % 0 %; Platelet Count 143 10^3/cmm (157-399); Red Blood Count 3.93 10^6/uL (3.85-5.65); Red Cell Distribution Width 13.9 % (12.1-15.1); White Blood Count 5.53 10^3/uL (3.29-11.43)
[2023-08-24 05:02] LABS: Blood Urea Nitrogen 12 mg/dL (8-23); Calcium 8.5 mg/dL (8.5-10.5); Carbon Dioxide 26 mmol/L (22-29); Chloride 102 mmol/L (98-107); Creatinine Clr Calc Pharmacy 61.3342; Glucose 103 mg/dL (65-115); Osmolality Calculated 284 mOsm/kg (285-295); Sodium 137 mmol/L (136-145)
[2023-08-24 05:09] VITALS: PULSE 66
--- NOTE | 2023-08-24 05:58 | PM.DCS ---
Discharge Providers Date of Admission: 08/22/23 17:34 Date of Discharge: August 23, 2023 Attending Provider at Admission: Edson Bridges MD Attending Provider at Discharge: Edson Bridges MD Primary Care Provider: Leonid Pagan Diagnoses at Discharge Discharge Diagnosis (1) Hypertension: Status: Acute (2) Non-ST elevated myocardial infarction: Status: Acute (3) Unstable angina: Status: Acute (4) Bradycardia: Status: Acute Reason for Visit Reason for Visit: CP Hospital Course Hospital Course 78-year-old female who was admitted for management evaluation of unstable angina, she went for coronary angiogram which did not show any obstructive disease, patient was hypertensive and bradycardic, no sign of stroke, her metoprolol was discontinued, at the time of discharge we would recommend Holter or event monitor, echo is unremarkable, preserved action fraction, for hypertension we have increased her dose of losartan to 50 mg along amlodipine. Please review cardiology note for further details about coronary angiogram. For congestive heart failure will transition her to IV Lasix 40 mg daily along potassium supplementation. Physical Exam Narrative: Pleasant cooperative GCS 15 nonfocal neuroexam Awake and alert Pleasant cooperative Nonpitting edema of legs Discharge Data Studies Completed and Pending Completed Studies During Hospitalization Category Date Time Status XR chest 1V portable [id number] Stat Exams 08/22/23 12:10 Completed CV. echo complete* [id number] Routine Ultrasound 08/23/23 06:00 Completed Pending at discharge Category Date Time Status GLASS SCULLION request for service Routine Exams 08/23/23 06:44 Ordered Basic Metabolic Panel AM LABS Lab 08/24/23 04:00 Ordered Blood Culture Stat Lab 08/22/23 12:58 Results Complete Blood Count w/Auto AM LABS Lab 08/24/23 04:00 Ordered Radiology Impressions Chest X-Ray 08/22/23 12:10 IMPRESSION: Myocardial megaly and central pulmonary venous hypertension. No acute abnormality. Laboratory Results WBC 5.34 10^3/uL (3.29-11.43) 08/23/23 04:30 RBC 3.78 10^6/uL (3.85-5.65) L 08/23/23 04:30 Hgb 12.10 g/dL (11.27-16.99) 08/23/23 04:30 Hct 36.4 % (36-47) 08/23/23 04:30 MCV 96.3 fl (85-98) 08/23/23 04:30 MCH 32.0 pg (27-33) 08/23/23 04:30 MCHC 33.2 g/dL (30-55) 08/23/23 04:30 RDW 14.0 % (12.1-15.1) 08/23/23 04:30 Plt Count 136 10^3/cmm (157-399) L 08/23/23 04:30 MPV 12.9 fL (7.4-10.4) H 08/23/23 04:30 Neut % (Auto) 47.9 % 08/23/23 04:30 Lymph % (Auto) 36.3 % 08/23/23 04:30 Fisher % (Auto) 12.5 % 08/23/23 04:30 Eos % (Auto) 2.4 % 08/23/23 04:30 Baso % (Auto) 0.7 % 08/23/23 04:30 Neut # (Auto) 2.55 10^3/uL (1.8-7.7) 08/23/23 04:30 Lymph # (Auto) 1.9 10^3/uL (0.8-4.8) 08/23/23 04:30 Fisher # (Auto) 0.7 10^3/uL (0.2-0.9) 08/23/23 04:30 Eos # (Auto) 0.1 10^3/uL (0.0-0.8) 08/23/23 04:30 Baso # (Auto) 0.0 10^3/uL (0.0-0.1) 08/23/23 04:30 Nucleated RBC % (auto) 0 % 08/23/23 04:30 Nucleated RBCs # 0.0 /100WBC 08/23/23 04:30 D-Dimer 0.68 ug/mLFEU (0-0.59) H 08/22/23 18:43 Sodium 136 mmol/L (136-145) 08/23/23 04:30 Potassium 3.6 mmol/L (3.5-5.1) 08/23/23 04:30 Chloride 101 mmol/L (98-107) 08/23/23 04:30 Carbon Dioxide 26 mmol/L (22-29) 08/23/23 04:30 Anion Gap 12.6 (5-19) 08/23/23 04:30 BUN 12 mg/dL (8-23) 08/23/23 04:30 Creatinine 0.5 mg/dL (0.5-0.9) 08/23/23 04:30 GFR Calculation Not Reportable 08/23/23 04:30 Glucose 97 mg/dL (65-115) 08/23/23 04:30 Estimat Average Glucose 111 08/22/23 18:43 Hemoglobin A1c 5.5 % (4.0-6.0) 08/22/23 18:43 Calculated Osmolality 282 mOsm/kg (285-295) L 08/23/23 04:30 Lactic Acid 0.6 mmol/L (0.5-2.2) 08/22/23 12:45 Calcium 8.4 mg/dL (8.5-10.5) L 08/23/23 04:30 Phosphorus 3.1 mg/dL (2.5-4.5) 08/23/23 04:30 Magnesium 1.9 mg/dL (1.7-2.3) 08/23/23 04:30 Total Bilirubin 0.4 mg/dL (0.15-1.2) 08/22/23 12:45 AST 16 U/L (0-32) 08/22/23 12:45 ALT 12 U/L (0-33) 08/22/23 12:45 Alkaline Phosphatase 106 U/L (35-105) H 08/22/23 12:45 Troponin T Baseline 40 ng/L (0-10) H 08/22/23 14:13 Troponin T 120 Minute 14.49 ng/L (0-10) H 08/22/23 15:41 Delta Troponin T -25.51 ABS# (0-10) L 08/22/23 15:41 Troponin T Hi Sens 6Hr 22.40 ng/L (0-10) H 08/22/23 19:53 Troponin T Hi Sens 6Hr Delta -17.60 ng/L (0-12) L 08/22/23 19:53 C-Reactive Protein 3.0 mg/L (0.0-4.9) 08/22/23 12:45 NT-Pro-B Natriuret Pep 4542 pg/mL (0-450) H 08/22/23 14:13 Total Protein 6.7 g/dL (6.6-8.7) 08/22/23 12:45 Albumin 3.9 g/dL (3.5-5.2) 08/22/23 12:45 Globulin 2.8 g/dL (1.3-4.6) 08/22/23 12:45 Vitamin B12 382 pg/mL (232-1245) 08/22/23 18:43 TSH 2.25 uIU/mL (0.27-4.20) 08/22/23 18:43 Urine Color Light yellow (Yellow) 08/22/23 14:04 Urine Appearance Clear (CLEAR) 08/22/23 14:04 Urine pH 7 (5-7) 08/22/23 14:04 Ur Specific [place] 1.010 (1.005-1.030) 08/22/23 14:04 Urine Protein Neg (Negative) 08/22/23 14:04 Urine Glucose (UA) Norm (Normal) 08/22/23 14:04 Urine Ketones Negative (Negative) 08/22/23 14:04 Urine Blood Neg (Negative) 08/22/23 14:04 Urine Nitrate Negative (Negative) 08/22/23 14:04 Urine Bilirubin Neg (Negative) 08/22/23 14:04 Urine Urobilinogen Norm mg/dL (Negative) 08/22/23 14:04 Ur Leukocyte Esterase Negative (Negative) 08/22/23 14:04 Urine RBC 0-4 /hpf (0-2) H 08/22/23 14:04 Urine WBC 0-4 /hpf (0-5) H 08/22/23 14:04 Ur Squamous Epith Cells 0-4 /hpf (0-5) H 08/22/23 14:04 Amorphous Sediment Not Reportable 08/22/23 14:04 Urine Bacteria Trace /hpf (NONE) 08/22/23 14:04 Adenovirus (PCR) Not detected (NOT DETECT) 08/22/23 12:46 C. pneumoniae DNA (PCR) Not detected (NOT DETECT) 08/22/23 12:46 Coronavirus 229E (PCR) Not detected (NOT DETECT) 08/22/23 12:46 Human Metapneumovir PCR Not detected (NOT DETECT) 08/22/23 12:46 Influenza A (H1) PCR Not detected (NOT DETECT) 08/22/23 12:46 Influ A (H1/09) PCR Not detected (NOT DETECT) 08/22/23 12:46 Influenza A (H3) PCR Not detected (NOT DETECT) 08/22/23 12:46 Influenza Type A (PCR) Not detected (NOT DETECT) 08/22/23 12:46 Influenza Type B (PCR) Not detected (NOT DETECT) 08/22/23 12:46 M. pneumoniae (PCR) Not detected (NOT DETECT) 08/22/23 12:46 Parainfluenza 1 (PCR) Not detected (NOT DETECT) 08/22/23 12:46 Parainfluenza 2 (PCR) Not detected (NOT DETECT) 08/22/23 12:46 Parainfluenza 3 (PCR) Not detected (NOT DETECT) 08/22/23 12:46 Parainfluenza 4 (PCR) Not detected (NOT DETECT) 08/22/23 12:46 RSV Type A (PCR) Not detected (NOT DETECT) 08/22/23 12:46 RSV Type B (PCR) Not detected (NOT DETECT) 08/22/23 12:46 Entero/Rhino (PCR) Not detected (NOT DETECT) 08/22/23 12:46 SARS-CoV-2 (PCR) Not detected (NOT DETECT) 08/22/23 12:46 Vitals Last Vital Signs Temp 98.0 F 08/22/23 20:00 Pulse 75 08/23/23 12:00 Resp 18 08/23/23 12:00 BP 131/68 08/23/23 10:13 Pulse Ox 96 08/23/23 12:00 O2 Del Method Room Air 08/23/23 12:00 Discharge Plan Discharge Patient Disposition: Home Condition: Stable Prescriptions: New amlodipine 10 mg Tablet 10 mg PO DAILY Qty: 90 0RF aspirin 81 mg Tablet,Delayed Release (Dr/Ec) 81 mg PO DAILY Qty: 90 0RF Continued famotidine [Pepcid] 20 mg tablet 20 mg PO DAILY potassium chloride 20 mEq tablet,ER particles/crystals 20 meq PO DAILY furosemide 40 mg tablet 40 mg PO DAILY sertraline 50 mg tablet 25 mg PO DAILY magnesium citrate 100 mg capsule 100 mg PO DAILY PRN (Reason: unknown) Changed losartan 25 mg tablet 50 mg PO DAILY Qty: 60 2RF Discontinued metoprolol tartrate 25 mg tablet 12.5 mg PO BID Discharge Orders: Discharge Order (Routine); Ordered 08/24/23 Ordered By: Edson Bridges Other Ambulatory Orders: MCT/Event Monitor 21 Days (Routine) Timeframe: 3 Weeks Facility: [facility] - Location: Radiology Ordered By: Edson Bridges Referrals: Leonid Pagan [Primary Care Provider] - Rajesh Pizarro M.D [Physician] - 2 weeks Gracie Martins FNP [Nurse Practitioner] - Discharge Diet: Cardiac Discharge Activity: Increase activity as tolerated Patient Instructions: Aspirin (By mouth) (Alex Extra Strength, Alex Aspirin Children's,..., Amlodipine (By mouth) (Hypertenipine-2.5, Norvasc, Norliqva), Losartan (By mouth) (Cozaar), Opioid Safety, Post Angiogram Home Care Instructions, Post Heart Attack Stoplight Discharge Attestations Time Spent in Discharge Care*: greater than 30 min Quality Metrics Clinical Quality Measures [ No reported AMI, CVA or VTE this stay] Coding Level of Care Code Acute Code for [facility] Diagnoses Hypertension I10 Non-ST elevated myocardial infarction I21.4 Unstable angina I20.0 Bradycardia R00.1
--- NOTE | 2023-08-24 08:06 | PM.PN ---
Subjective Subjective: Patient doing well. No chest pain. Coronary angiogram did not reveal significant CAD. Vitals/I&O/Wt Last Vital Signs Temp 92.3 F L 08/24/23 04:00 Pulse 66 08/24/23 05:09 Resp 14 08/24/23 04:00 BP 140/67 08/24/23 04:00 Pulse Ox 96 08/24/23 04:00 O2 Del Method Room Air 08/23/23 19:46 08/23/23 08/24/23 08/24/23 22:59 06:59 14:59 Intake Total 844.167 / 1044.167 500 / 1544.167 Output Total 300 / 800 Balance 544.167 / 244.167 500 / 744.167 Weight last 48 hrs Weight 193 lb 4.8 oz Weight 170 lb 12.8 oz Physical Exam Narrative: GENERAL: Patient is alert, awake and oriented x3. [] NECK: No jugular vein distension. [] HEENT: No cyanosis. No icterus. No pallor. [] HEART: Regular S1 and S2. No murmur, rub or gallop. [] LUNGS: Clear to auscultate bilaterally. [] CENTRAL NERVOUS SYSTEM: Grossly nonfocal. [] EXTREMITIES: Lower extremities with 1+ edema bilaterally. Data 08/24/23 03:00 08/24/23 03:00 Micro: Microbiology 08/22/23 12:58 Blood Culture - Preliminary Blood NEGATIVE TO DATE 08/22/23 12:45 Blood Culture - Preliminary Blood NEGATIVE TO DATE A&P Assessment and plan (1) Unstable angina: (2) Hypertension: (3) Bradycardia: Plan Patient overall doing well. Continue current medications. Close blood pressure monitoring as outpatient. Patient is stable to be discharged from cardiology standpoint. Please call with questions Attestations Medical Necessity Statement*: Care expected to cross 2 midnights. Coding Level of Care Code Acute Code for [facility] Diagnoses Unstable angina I20.0 Hypertension I10 Bradycardia R00.1
[2023-08-24] MEDS: amlodipine 10 mg Tablet PO (08:53)
[2023-08-24] MEDS: sennosides-docusate Tablet 1 TAB PO (08:53)
[2023-08-24] MEDS: aspirin 81 mg EC Tablet PO (08:53)
[2023-08-24 08:54] VITALS: BP 138/78
[2023-08-24] MEDS: losartan 50 mg Tablet PO (08:54)
[2023-08-24 09:09] VITALS: PULSE 66; RESP 16; O2SAT 96
[2023-08-24 10:58] VITALS: PULSE 66; RESP 16; O2SAT 96
--- NOTE | 2023-08-24 10:59 | PC.NURSE ---
Discharge Note Patient discharged to home via wheelchair accompanied by spouse. Discharge instructions reviewed with patient and/or patient services representative. Mobile pharmacy medications and/or prescriptions provided. Belongings/home medications returned.
== END 2023-08-24 11:00 | disposition home or self-care (01) | DRG 287 ==
LOC: ER 17:26 → ICU 17:34 → CSU 08-23 17:52
PROVIDERS: Internal Medicine; Admitting Provider Internal Medicine; Emergency Provider Emergency Medicine; PCP Family Medicine; Visit Provider Internal Medicine
PROC: B2111ZZ Fluoroscopy of Multiple Coronary Arteries using Low Osmolar Contrast (ICD-10-PCS; principal; 2023-08-23 07:30)
DX: I20.0 Unstable angina (principal); I50.32 Chronic diastolic (congestive) heart failure; I16.0 Hypertensive urgency; R00.1 Bradycardia, unspecified; I11.0 Hypertensive heart disease with heart failure; Z86.73 Personal history of transient ischemic attack (TIA), and cerebral infarction without residual deficits; Z79.82 Long term (current) use of aspirin
CPT/HCPCS: 36415; 71045; 80048; 80053; 81001; 82607; 83036; 83605; 83735; 83880; 84100; 84443; 84484; 85025; 85378; 86140; 87040; 87486; 87581; 87633; 93005; 93306; 93458; 96372; 96374; 96375; 96376; 99152; 99153; 99285; C1760; C1769; C1887; C1894; G0269; J0360; J1644; J1650; J1940; J2250; J3010; J3490; J7030; Q0163; Q9967

== ENCOUNTER → 2023-10-15 12:50 | Outpatient (BNVA) | payer MEDICARE, SELFPAY | PROVIDERS: PCP Family Medicine; Visit Provider Nurse Practitioner Family | DX: I11.0 Hypertensive heart disease with heart failure (principal); I50.32 Chronic diastolic (congestive) heart failure | CPT/HCPCS: 99214 ==